=== PATIENT | male | born 1970 | race Caucasian/White ===

== ENCOUNTER 2017-07-14 17:46 | Emergency (ER) | payer BC ==
[~2017-07-14] VITALS: Ht 165.1 cm; Wt 71.0 kg
[2017-07-14 17:55] VITALS: Ht 165.1 cm; Wt 71.0 kg
--- NOTE | 2017-07-14 18:50 | ERD ---
ER Documentation Chief Complaint Date/Time DATE: 07/14/17 TIME: 18:49 Chief Complaint Complains of chest congestion x 3 days HPI 37-year-old male who presents the emergency department today complaining of left -sided chest wall pain and cough for the past 3 weeks. States he is also had a runny nose. States he has tried [id number] medication such as TheraFlu and Tylenol with no improvement in symptoms. Denies any fevers or chills, prolonged travel. States that his throat also itches. ROS All systems reviewed and are negative except as per history of present illness. Medications Home Meds Active Scripts Fluticasone Propionate (Flonase Allergy Relief) 9.9 Ml Garrett.susp, 1 SPRAY NASAL DAILY, #1 BOTTLE TO EACH NOSTRIL Prov:HERBER HITCHCOCK PA-C 07/14/17 Cetirizine Hcl* (Zyrtec*) 10 Mg Capsule, 10 MG PO DAILY, #14 TAB.CHEW Prov:HERBER HITCHCOCK PA-C 07/14/17 Azithromycin* (Zithromax*) 250 Mg Tablet, 250 MG PO .ZPACK DIRECTED, #6 TAB TAKE 500 MG (2 TABS) THE FIRST DAY THEN 250 MG (1 TAB) DAYS 2-5 Prov:HERBER HITCHCOCK PA-C 07/14/17 Allergies Allergies: Coded Allergies: No Known Allergy (Unverified , 11/16/14) PMhx/Soc History of Surgery: Yes (RIGHT WRIST) Anesthesia Reaction: No Hx Neurological Disorder: No Hx Respiratory Disorders: Yes (ASTHMA) Hx Cardiac Disorders: No Hx Psychiatric Problems: No Hx Miscellaneous Medical Probl: Yes (NECK FX, BRIONNA WRIST FX) Hx Alcohol Use: Yes (OCCASSIONAL) Hx Substance Use: No Hx Tobacco Use: No Smoking Status: Never smoker Physical Exam Vitals Vital Signs Date Time Temp Pulse Resp B/P Pulse Ox O2 Delivery O2 Flow Rate FiO2 07/14/17 17:55 97.9 78 20 115/69 98 Physical Exam Const: NAD Head: Atraumatic Eyes: Normal Conjunctiva ENT: Normal External Ears, Nose and Mouth. Neck: Full range of motion..~ No meningismus. Resp: Clear to auscultation bilaterally. No absent breath sounds. There is palpation left sided chest wall. Cardio: Regular rate and rhythm, no murmurs Skin: No petechiae or rashes Back: No midline or flank tenderness Ext: No cyanosis, or edema Neur: Awake and alert Psych: Normal Mood and Affect Results 24 hrs DIAGNOSTIC IMAGING REPORT Patient: MANOJ FINNEGAN : 1970 Age: 47 Sex: M MR #: [id number] DOS: 07/14/17 0000 Ordering MD: HERBER HITCHCOCK PA-C Location: [facility] Room/Bed: PROCEDURE: Chest radiograph CLINICAL INDICATION: Cough for 3 weeks. COMPARISON: None relevant listed. TECHNIQUE: Single frontal chest radiograph. FINDINGS: The lungs are clear. No pleural effusion or focal parenchymal opacity. The cardiomediastinal silhouette is normal. No suspicious bone lesion. IMPRESSION: No acute cardiopulmonary abnormality. RPTAT: [facility] Physician Jimy Date Time Electronically viewed and signed by Litzy Jean Baptiste Physician on 07/14/2017 19: 38 LG/ CC: HERBER HITCHCOCK PA-C Procedures/MDM This 47-year-old male who presents the emergency department today complaining of left-sided chest wall pain and cough for the past 3 weeks. Given patient's duration of symptoms I did obtain images. EKG read and interpreted by Dr. Zhang [address] elevation. No QT prolongation. Patient for acute LA, PE, pericarditis Chest x-ray is negative. Low suspicion for pneumonia, PE, abscess, pleural effusion. Symptoms at this time is consistent with cough likely viral however given his duration of symptoms I will give him a prescription for azithromycin to treat possible bronchitis.. Patient was also reporting an itchy throat and therefore I will give also given a prescription for Zyrtec Flonase as well as this may be allergy related. At this time the patient is stable for discharge and outpatient management. Patient should follow up with their PCP in the next 1-2 days. They may return to the emergency department sooner for any persistent or worsening of symptoms. Patient understood and agreed with the plan. Departure Diagnosis: Primary Impression: Cough Condition: Fair HERBER HITCHCOCK PA-C Jul 14, 2017 18:50
--- NOTE | 2017-07-14 19:39 | RADRPT ---
PROCEDURE: Chest radiograph CLINICAL INDICATION: Cough for 3 weeks. COMPARISON: None relevant listed. TECHNIQUE: Single frontal chest radiograph. FINDINGS: The lungs are clear. No pleural effusion or focal parenchymal opacity. The cardiomediastinal silhouette is normal. No suspicious bone lesion. IMPRESSION: No acute cardiopulmonary abnormality. RPTAT: [facility] Physician Jimy Date Time Electronically viewed and signed by Litzy Jean Baptiste Physician on 07/14/2017 19:38 LG/
[2017-07-14] MEDS ORDERED: CETI10CA PO (20:01)
[2017-07-14] MEDS ORDERED: AZIT250T94 PO (20:01)
[2017-07-14] MEDS ORDERED: FLUT9.9S NASAL (20:01)
== END 2017-07-14 20:15 | disposition home or self-care (01) ==
LOC: FTE 17:46
DX: R05 Cough (principal); J45.909 Unspecified asthma, uncomplicated
CPT/HCPCS: 71010; 93005; Z7502